=== PATIENT | male | born 1955 | race Caucasian/White ===

== ENCOUNTER → 2016-12-06 | Outpatient (CLI) | payer BC ==
[~2016-12-06] MED LIST: FINA5TAB PO; IBUP-103 PO; SIME1CAP9 PO; ZNTT/150 PO
[2016-12-06 17:30] LABS: BASO % 0.4 %; BASO ABS # 0.03 K/uL (0-0.2); COMPLETE YES; EOS % 1.7 %; HEMATOCRIT 46.7 % (42-52); IG% 0.4 %; LYMPH % 32.6 %; MEAN CELL VOLUME 87.3 fL (80-100); MEAN CORPUSCULAR HEMOGLOBIN 29.9 pg (25-34); MEAN CORPUSCULAR HGB CONC 34.3 g/dl (32-36); MEAN PLATELET VOLUME 9.5 fL (7.4-10.4); MONO % 8.5 %; NEUT % 56.4 %; PLATELET COUNT 283 K/uL (130-400); RED BLOOD COUNT 5.35 M/uL (4.7-6.1); WHITE BLOOD COUNT 8.27 K/uL (4.8-10.8)
[2016-12-06 18:24] LABS: ALT/SGPT 27 U/L (12-78); AST/SGOT 23 U/L (15-37); BLOOD UREA NITROGEN 12 mg/dl (7-18); BUN/CREATININE RATIO 13.5 (10-20); CARBON DIOXIDE 25 mmol/L (21-32); CHLORIDE 104 mmol/L (98-107); GLUCOSE 91 mg/dl (70-99); HDL CHOLESTEROL 39 mg/dl; POTASSIUM 4.3 mmol/L (3.5-5.1); SODIUM 136 mmol/L (136-145)
[2016-12-06 18:36] LABS: ALKALINE PHOSPHATASE 105 U/L (45-117); CHOLESTEROL 173 mg/dl (0-200); CHOLESTEROL/HDL RATIO 4.4; LDL CHOLESTEROL CALCULATED 86 mg/dl; TRIGLYCERIDES 238 mg/dl (0-150); VERY LOW DENSITY LIPOPROT CALC 48 mg/dl
== END | disposition home or self-care (01) ==
LOC: C.LABBFT 11:48
PROVIDERS: ATTEND Internal Medicine
DX: Z11.59 Encounter for screening for other viral diseases (principal); M54.5 Low back pain; Z13.6 Encounter for screening for cardiovascular disorders

== ENCOUNTER → 2016-12-08 | Outpatient (CLI) | payer BC ==
--- NOTE | 2016-12-08 10:42 | DIAGNOSTIC IMAGING REPORT ---
ABDOMEN ULTRASOUND FOR HERNIA CLINICAL HISTORY: R10.30 Groin pain, [id number] COMPARISON STUDY: Abdomen and pelvis CT 02/09/2016. FINDINGS: There is a small fat-containing right inguinal hernia. This appears reducible. No fluid collections or masses. IMPRESSION: Small reducible fat-containing right inguinal hernia. Electronically signed by: Cedric Handley M.D. 12/08/2016 10:41 AM Dictated Date/Time: 12/08/2016 10:40 AM
--- NOTE | 2016-12-08 10:51 | DIAGNOSTIC IMAGING REPORT ---
L-SPINE MIN 4 VIEWS ROUTINE CLINICAL HISTORY: Low back pain COMPARISON STUDY: No previous studies for comparison. FINDINGS: There are 5 lumbar type vertebral bodies. No fractures, subluxations, or destructive lesions are visualized. There are degenerative changes with disc space narrowing at the L5-S1 level. There is mild gaseous prominence of the small bowel. This could reflect a mild ileus. IMPRESSION: Degenerative changes at the L5-S1 level. No fractures identified. Electronically signed by: Thomas Rivera M.D. 12/08/2016 10:50 AM Dictated Date/Time: 12/08/2016 10:49 AM
== END | disposition home or self-care (01) ==
LOC: C.ULTR 10:04
PROVIDERS: ATTEND Internal Medicine
DX: M54.5 Low back pain (principal); R10.30 Lower abdominal pain, unspecified; K40.90 Unilateral inguinal hernia, without obstruction or gangrene, not specified as recurrent

== ENCOUNTER → 2016-12-20 | Outpatient (CLI) | payer BC ==
[~2016-12-20] MED LIST changes: +GADAVIST IV PRN
--- NOTE | 2016-12-20 11:32 | DIAGNOSTIC IMAGING REPORT ---
CT LUNG SCREENING, LOW DOSE WITH COMPUTER-AIDED DETECTION (CAD) CLINICAL HISTORY: LOW DOSE LUNG SCREENING SMOKING HISTORY COMPARISON STUDY: Abdominal CT dated 02/09/2016 and 04/20/2009. CT DOSE: 90.26 mGy.cm TECHNIQUE: Low-dose helical CT was acquired without intravenous contrast from lung apices to bases and reconstructed at 2.5 mm every 2 mm. CAD was utilized for this study. FINDINGS: Thyroid: Imaged portions of the thyroid gland are normal in appearance. Thoracic aorta: There is mild atherosclerotic calcification of the thoracic aorta, which is normal in caliber and demonstrates standard 3-vessel arch anatomy. Heart: The heart is normal in size and there is trace pericardial fluid. The coronary arteries are densely calcified. Lungs and pleural spaces: Advanced emphysematous changes observed. No airspace consolidation is seen typical for pneumonia and there is no pleural effusion. Dependent atelectasis is observed. The trachea and central airways are clear. A tiny calcified granuloma is noted in the left lower lobe. 7 mm pulmonary nodule is seen in the lingula on image #232. This is unchanged from 2009 and of doubtful significance. No additional pulmonary nodules are identified. Mediastinum: A mildly enlarged precarinal node seen on image #144 measures 1.1 cm in short axis. A prominent AP window node measures 9 mm in short axis as seen on image #134. These are nonspecific. Alison: Not well assessed without IV contrast Axilla: Clear. Upper abdomen: There is a tiny hiatal hernia. Partially visualized upper abdominal viscera is otherwise within normal limits. Skeletal structures: The skeletal structures are osteopenic. Degenerative change is noted in the shoulders and thoracic spine. There are no lytic or blastic osseous lesions. IMPRESSION: 1. Advanced emphysema. 2. There is no airspace consolidation or pleural effusion. 3. No concerning pulmonary lesion is identified. 4. There is a 7 mm pulmonary nodule identified in the lingula. This is unchanged dating back to [address] and of doubtful significance. 5. Additional findings as detailed above. CAD FINDINGS: Nodule 1 Category: 2 Nodule 1 Status: Baseline Nodule 1 Description: Solid Nodule 1 Lesion ID: 1 Nodule 1 Slice Number: 43 Nodule 1 Volume (mm3): 83 Nodule 1 Major [place] mm: 8.8 Nodule 1 Minor [place] mm: 3.8 Overall Lung RADS Category: 2 Lung RADS Management Recommendation: Lung-RADS 2: Continue annual screening in 12 months. Lung RADS Follow Up Date: 2017-12-20 Lung RADS Nodule ID: 1 Electronically signed by: Haroon Dorman M.D. 12/20/2016 11:31 AM Dictated Date/Time: 12/20/2016 11:22 AM
--- NOTE | 2016-12-20 13:44 | DIAGNOSTIC IMAGING REPORT ---
MRI LUMBAR SPINE COMBO CLINICAL HISTORY: Lumbago. COMPARISON STUDY: Radiographs of the lumbar spine dated 12/08/2016. Abdominal CT dated 04/20/2009. TECHNIQUE: MRI of the lumbar spine is performed utilizing various T1 and T2-weighted sequences in the axial and sagittal planes. Contrast-enhanced sequences are acquired following the IV administration of 8.5 cc of Gadavist. FINDINGS: Lumbar spine: Vertebral body height and alignment are maintained throughout the lumbar spine. Small hemangiomas are seen in the bodies of L3 and S1. No destructive osseous lesion is identified. The transverse and spinous processes appear intact. There is no evidence of spondylolysis. Tiny anterior osteophytes are seen throughout. Intervertebral discs: There is mild degenerative disc desiccation seen throughout the cervical spine. Mild to moderate loss of height is noted L5-S1. The remaining disc spaces are preserved. Spinal cord: The visualized spinal cord is normal in morphology and signal intensity. The conus medullaris terminates at the T12-L1 interspace. The nerve roots of the cauda equina are normal in morphology. No abnormal enhancement is seen on the postcontrast images. L1-L2: Unremarkable. L2-L3: Unremarkable. L3-L4: Unremarkable. L4-L5: Facet arthropathy is of no consequence. The central canal and neural foramina are widely patent. L5-S1: There is a posterior disc bulge eccentric to the left with annular fissure. The central canal is widely patent. The disc bulge contributes to left-sided subarticular stenosis. This may abut the exiting left L5 and the transiting left S1 nerve roots. The neural foramina are patent. Sacrum: Visualized sacrum is normal in morphology and signal intensity. Soft tissues: The paraspinous soft tissues are within normal limits. The visualized retroperitoneal structures are grossly unremarkable but incompletely assessed. IMPRESSION: 1. No destructive bony process is identified. 2. There is no disc herniation or central canal stenosis. 3. A disc bulge eccentric to the left at L5-S1 contributes to left-sided subarticular stenosis and may abut the exiting left L5 and the transiting left S1 nerve roots. See discussion for detailed level by level analysis. Dictated: 12/20/2016 11:07 AM Transcribed: 12/20/2016 1:44 PM Gilda Electronically signed by: Haroon Dorman M.D. 12/20/2016 2:39 PM Dictated Date/Time: 12/20/2016 11:07 AM
== END | disposition home or self-care (01) ==
LOC: C.MRI 09:48
PROVIDERS: ATTEND Internal Medicine
DX: M54.5 Low back pain (principal); J43.9 Emphysema, unspecified; R91.1 Solitary pulmonary nodule; Z87.891 Personal history of nicotine dependence

== ENCOUNTER → 2017-08-02 | Outpatient (CLI) | payer BC ==
[~2017-08-02] MED LIST changes: -GADAVIST IV PRN; -SIME1CAP9 PO
== END | disposition home or self-care (01) ==
LOC: C.LABBFT 11:50
PROVIDERS: ATTEND Nurse Practitioner
DX: A46 Erysipelas (principal)

== ENCOUNTER → 2017-08-30 | Day surgery (SDC) | payer BC ==
[2017-08-15 13:48] VITALS: Ht 175.3 cm; Wt 90.9 kg
[~2017-08-30] VITALS: Ht 175.3 cm; Wt 90.9 kg
[~2017-08-30] MED LIST changes: +CYCL10TA6 PO; +DICL-201 PO; -IBUP-103 PO; +IBUP1CAP9 PO; +LIDOCAINE HCL 2% 2 ML VIAL (20MG/ML) ONE; +MIDAZOLAM HCL 1 MG/ML 2ML VIAL ONE; +ONDANSETRON INJ 2 MG/ML 2 ML VIAL ONE; +PROPOFOL IV EMULSION 10 MG/ML 20 ML VIAL IV ONE; +TAMS0.4C38 PO
--- NOTE | 2017-08-30 13:04 | Endo History and Physical ---
History & Physical Date of Service: Aug 30, 2017. Chief Complaint: screening,family history of colon cancer Referring Physician: Dr. Matt Neves History of Present Illness 61 yo CM who presents for colonoscopy secondary to family history of colon cancer. Past Medical History Reflux, Hypertension Past Surgical History Hx Cardiac Surgery: No Hx Internal Defibrillator: No Hx Pacemaker: No Hx Abdominal Surgery: Yes (HERNIA REPAIR) Hx of Implantable Prosthesis: No Hx Post-Op Nausea and Vomiting: No Hx Cancer Surgery: No Hx Thoracic Surgery: No Hx Orthopedic: No Hx Urinary Tract Surgery: No Family History Colon CA Social History Smoking Status: Current Every Day Smoker Hx Substance Use: No Hx Alcohol Use: No Allergies Coded Allergies: No Known Allergies (Verified , 08/30/17) Current Medications Reported Home Medications Medications Dose Route/Sig Max Daily Dose Days Date Category Dose Instructions Ibuprofen 200 Mg Cap 2 Cap PO Q6H PRN 08/15/17 Reported Voltaren (Diclofenac Sodium) 75 Mg Tabcr 75 Mg PO QAM 08/15/17 Reported WITH FOOD Flexeril (Cyclobenzaprine Hcl) 10 Mg Tab 10 Mg PO HS 08/15/17 Reported Flomax (Tamsulosin Hcl) 0.4 Mg Cap 0.4 Mg PO QAM 08/15/17 Reported Zantac (Ranitidine HCl) 150 Mg Tab 150 Mg PO BID 01/18/17 Reported Proscar (Finasteride) 5 Mg Tab 5 Mg PO QAM 01/18/17 Reported Vital Signs Weight (Kilograms): 90.91 Height (Feet): 5 Height (Inches): 9 Date Time Temp Pulse Resp B/P (MAP) Pulse Ox O2 Delivery O2 Flow Rate FiO2 08/30/17 12:26 36.7 77 20 159/85 (109) 97 Room Air Physical Exam General Appearance: WD/WN, no apparent distress Respiratory/Chest: Auscultation: breath sounds normal Cardiovascular: Heart Auscultation: RRR Abdomen: Bowel Sounds: normal Inspection & Palpation: soft, non-distended, no tenderness, guarding & rebound Assessment and Plan Assessment: 61 yo CM who presents for colonoscopy secondary to family history of colon cancer. Plan: Proceed with colonoscopy.
--- NOTE | 2017-08-30 13:40 | GI REPORT ---
Procedure Date: 08/30/2017 1:01 PM Procedure: Colonoscopy Indications: Family history of colon cancer in a first-degree relative Medicines: Monitored Anesthesia Care Complications: No immediate complications. Estimated Blood Loss: Estimated blood loss: none. Procedure: Pre-Anesthesia Assessment: - Prior to the procedure, a History and Physical was performed, and patient medications and allergies were reviewed. The patient's tolerance of previous anesthesia was also reviewed. The risks and benefits of the procedure and the sedation options and risks were discussed with the patient. All questions were answered, and informed consent was obtained. Prior Anticoagulants: The patient has taken no previous anticoagulant or antiplatelet agents. ASA Grade Assessment: II - A patient with mild systemic disease. After reviewing the risks and benefits, the patient was deemed in satisfactory condition to undergo the procedure. After I obtained informed consent, the scope was passed under direct vision. Throughout the procedure, the patient's blood pressure, pulse, and oxygen saturations were monitored continuously. The scope was introduced through the anus and advanced to the terminal ileum. The colonoscopy was performed without difficulty. The patient tolerated the procedure well. The quality of the bowel preparation was good. The terminal ileum, ileocecal valve, appendiceal orifice, and rectum were photographed. Findings: The perianal and digital rectal examinations were normal. A moderate amount of semi-solid stool was found in the entire colon, interfering with visualization. Multiple small-mouthed diverticula were found in the sigmoid colon. Non-bleeding internal hemorrhoids were found during retroflexion. The hemorrhoids were small. Impression: - Stool in the entire examined colon. - Diverticulosis in the sigmoid colon. - Non-bleeding internal hemorrhoids. - No specimens collected. Recommendation: - Resume previous diet. - Continue present medications. - Repeat colonoscopy in 3 years for surveillance. - Return to primary care physician as previously scheduled. Ankit Sage DO 08/30/2017 1:39:47 PM This report has been signed electronically. Note Initiated On: 08/30/2017 1:01 PM I attest to the content of the Intraoperative Record and orders documented therein, exceptions below
[2017-08-30 14:06] VITALS: BP 148/89; PULSE 70; O2SAT 96
--- NOTE | 2017-08-30 15:19 | Discharge Instructions ---
Endoscopy Patient Instructions Date / Procedure(s) Performed Aug 30, 2017. Colonoscopy Allergy Information Coded Allergies: No Known Allergies (Verified , 08/30/17) Discharge Date / Findings Aug 30, 2017. Diverticulosis Internal hemorrhoids Medication Instructions Stopped Medication(s): stopped all meds on Monday OK to resume all medications today as prescribed Reported Home Medications Medications Dose Route/Sig Max Daily Dose Days Date Category Dose Instructions Ibuprofen 200 Mg Cap 2 Cap PO Q6H PRN 08/15/17 Reported Voltaren (Diclofenac Sodium) 75 Mg Tabcr 75 Mg PO QAM 08/15/17 Reported WITH FOOD Flexeril (Cyclobenzaprine Hcl) 10 Mg Tab 10 Mg PO HS 08/15/17 Reported Flomax (Tamsulosin Hcl) 0.4 Mg Cap 0.4 Mg PO QAM 08/15/17 Reported Zantac (Ranitidine HCl) 150 Mg Tab 150 Mg PO BID 01/18/17 Reported Proscar (Finasteride) 5 Mg Tab 5 Mg PO QAM 01/18/17 Reported Provider Instructions Activity Restrictions - No exercising or heavy lifting for 24 hours. - Do not drink alcohol the day of the procedure. - Do not drive a car or operate machinery until the day after the procedure. - Do not make any important decisions or sign important papers in 24 hours after the procedure. Following Day: - Return to full activity which may include returning to work/school. Diet Start your diet with liquids and light foods (jello, soup, juice, toast). Then eat your usual diet if not nauseated. Treatment For Common After Affects For mild abdominal pain, bloating, or excessive gas: - Rest - Eat lightly - Lie on right side Follow-Up Information Follow-up with Dr. Matt Neves as scheduled Anesthesia Information What You Should Know You have had a procedure that required some medicine to reduce anxiety and discomfort. This treatment is called moderate sedation. After receiving the treatment, you may be sleepy, but you will be able to breathe on your own. The effects of the treatment may last for several hours. Follow these instructions along with Activity/Diet recommendations noted above: * Do NOT do anything where dizziness or clumsiness would be dangerous. * Rest quietly at home today, then you can be up and about tomorrow. * Have a responsible person stay with you the rest of today. * You may have had an I.V. today. If so, you may take the dressing off later today. Recommendations Call your doctor if: * Trouble breathing * Continuous vomiting for more than 24 hours * Temperature above 101 degrees * Severe abdominal pain or bloating * Pain not relieved by pain medicine ordered * There is increased drainage or redness from any incision * A large amount of rectal bleeding greater than 2-3 tablespoons. (If you had a polyp/s removed or have hemorrhoids, a small amount of blood - from the rectum is to be expected.) * You have any unanswered questions or concerns. IN THE EVENT OF A SERIOUS EMERGENCY, GO TO THE NEAREST EMERGENCY ROOM Your discharge instructions were prepared by provider Ankit Sage. Patient Instructions Signature Page Dev Galindo Patient (or Guardian) Signature/Date: I have read and understand the instructions given to me by my caregivers. Caregiver/RN/Doctor Signature/Date: The above-named patient and/or guardian has received patient instructions on this date. + Original Patient Signature Page (only) stays with chart. Please make copy for patient.
--- NOTE | 2017-08-30 15:23 | Anesthesiology Progress Note ---
Anesthesia Post Op Note Date & Time Aug 30, 2017 at 14:25 Vital Signs Pain Intensity: 0 Vital Signs Past 12 Hours Date Time Temp Pulse Resp B/P (MAP) Pulse Ox O2 Delivery O2 Flow Rate FiO2 08/30/17 14:06 70 20 148/89 (108) 96 Room Air 08/30/17 13:52 70 20 147/88 (107) 96 Room Air 08/30/17 13:36 68 16 126/84 (98) 95 Room Air 08/30/17 12:26 36.7 77 20 159/85 (109) 97 Room Air Notes Mental Status: alert / awake / arousable, participated in evaluation Pt Amnestic to Procedure: Yes Nausea / Vomiting: adequately controlled Pain: adequately controlled Airway Patency, RR, SpO2: stable & adequate BP & HR: stable & adequate Hydration State: stable & adequate Anesthetic Complications: no major complications apparent
== END | disposition home or self-care (01) ==
LOC: C.GI 11:59
PROVIDERS: ATTEND Internal Medicine
DX: Z12.11 Encounter for screening for malignant neoplasm of colon (principal); K57.30 Diverticulosis of large intestine without perforation or abscess without bleeding; K64.8 Other hemorrhoids; Z80.0 Family history of malignant neoplasm of digestive organs; K21.9 Gastro-esophageal reflux disease without esophagitis; I10 Essential (primary) hypertension; F17.200 Nicotine dependence, unspecified, uncomplicated; Z79.899 Other long term (current) drug therapy

== ENCOUNTER → 2017-11-15 | Outpatient (CLI) | payer BC ==
[~2017-11-15] MED LIST changes: -LIDOCAINE HCL 2% 2 ML VIAL (20MG/ML) ONE; -MIDAZOLAM HCL 1 MG/ML 2ML VIAL ONE; -ONDANSETRON INJ 2 MG/ML 2 ML VIAL ONE; -PROPOFOL IV EMULSION 10 MG/ML 20 ML VIAL IV ONE; +RANI150T85 PO; -ZNTT/150 PO
== END | disposition home or self-care (01) ==
LOC: C.LAB 11:03
PROVIDERS: ATTEND Urology
DX: N43.3 Hydrocele, unspecified (principal); R31.0 Gross hematuria

== ENCOUNTER 2018-12-20 23:45 | Observation (INO) ==
[2018-12-21] MEDS ORDERED: ASPIRIN CHEW 324 MG PO STA (00:02)
[2018-12-21 00:14] LABS: Basophils # (auto) 0.04 K/uL (0-0.2); Basophils % (auto) 0.4 %; Hematocrit (blood only) 41.8 % (42-52); Hemoglobin 15.3 g/dL (14.0-18.0); Immature Granulocytes # (auto) 0.03 K/uL (0.00-0.02); Immature Granulocytes % (auto) 0.3 %; Lymphocytes # (auto) 2.13 K/uL (1.2-3.4); Mean Corpuscular Hgb Conc 36.6 g/dL (32-36); Mean Corpuscular Volume 82.3 fL (80-100); Mean Platelet Volume 9.3 fL (7.4-10.4); Monocytes # (auto) 0.66 K/uL (0.11-0.59); Monocytes % (auto) 6.8 %; Neutrophils # (auto) 6.71 K/uL (1.4-6.5); Neutrophils % (auto) 69.5 %; Platelet Count 258 K/uL (130-400); RDW Coefficient of Variation 12.8 % (11.5-14.5); RDW Standard Deviation 38.9 fL (36.4-46.3); Red Blood Count 5.08 M/uL (4.7-6.1); White Blood Count 9.67 K/uL (4.8-10.8)
[2018-12-21 00:31] LABS: Albumin Level 3.6 gm/dl (3.4-5.0); BUN Creatinine Ratio 13.2 (10-20); Calcium 8.4 mg/dl (8.5-10.1); Creatinine Clr Calc Pharmacy 78.5 ml/min; Est GFR (African American) 88.6; Est GFR (Non-African American) 76.4; Potassium 3.8 mmol/L (3.5-5.1)
[2018-12-21 00:36] LABS: Albumin Globulin Ratio 0.9 (0.9-2); Bilirubin,Total 0.3 mg/dl (0.2-1); Creatine Kinase MB 8.6 ng/ml (0.5-3.6); Globulin 3.9 gm/dl (2.5-4.0); Total Protein 7.5 gm/dl (6.4-8.2); Troponin I 0.016 ng/ml (0-0.045)
--- NOTE | 2018-12-21 01:18 | Emergency Department Note ---
History of Present Illness General Chief complaint: Chest Pain Stated complaint: CHEST PAIN,SWEATS Source: patient Mode of arrival: ambulatory Limitations: no limitations History of Present Illness This patient is a 63-year-old male who presents to the emergency department complaining of an episode of chest pain which began approximately 3 hours ago. The patient states that he was at work and was walking when he developed a gradually worsening pain in the center of his chest. He describes this as a severe pressure which did not radiate anywhere. He states that he also developed diaphoresis at that time. He sat down and the pain gradually improved and resolved after 45 minutes. The patient does admit that he has been having some similar episodes of pain for the past 2 months. He states these have been occurring 2-3 times weekly and are typically associated with exertion. He does have a history of reflux and attributed the symptoms to this. He states he has had a stress test in the past, but it has been several years. He denies any personal history of cardiac disease, but does state that 2 of his siblings have had MIs and one sibling has a pacemaker. He is a smoker. He denies any history of hypertension or hyperlipidemia. He denies nausea/vomiting, shortness of breath, or abdominal pain. Home Medications Home Medications Medication Instructions Recorded Confirmed Type finasteride 5 mg PO QAM 12/21/18 12/21/18 History ibuprofen 400 mg PO Q6H PRN 12/21/18 12/21/18 History ranitidine HCl 150 mg PO BID 12/21/18 12/21/18 History tamsulosin 0.4 mg PO QAM 12/21/18 12/21/18 History Allergies Allergy/AdvReac Type Severity Reaction Status Date / Time No Known Allergies Allergy Verified 12/21/18 01:27 Past Med/Surg History Medical History Enlarged prostate (Chronic) GERD (gastroesophageal reflux disease) Surgical History H/O inguinal hernia repair Social History Preferred Language: Kazakh Communication Ability: Effective 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 Beliefs That Will Affect Care: None Current Living Situation: Spouse Current Living Situation Comment: home Other Information That Helps Us Care for You: No Feels Safe at Home: Yes Safety Concerns: Feels Safe At This Time Smoking Status: Current every day smoker Tobacco Type: cigars Cigarettes Per Day: 40-60 Do You Dip or Chew Tobacco: No Second Hand Exposure: No Tobacco Cessation Education Requested by Patient: No Hx Alcohol Use: No Hx Substance Use: No Review of Systems A total of 10 systems reviewed and were otherwise negative Physical Exam Vital Signs Vital Signs - 24 hr 12/20/18 23:49 12/21/18 00:09 12/21/18 01:04 Temperature 36.7 C Temperature Source Oral Sepsis Action Taken by Nursing No Action Required Pulse Rate 78 67 Pulse Rate [Finger] 61 Respiratory Rate 20 18 Respiratory Effort / Characteristics Non-Labored Respiratory Depth Normal Blood Pressure 165/87 H Blood Pressure [Right Arm] 142/86 H Blood Pressure Mean 113 Blood Pressure Mean [Right Arm] 104 Pulse Oximetry 96 97 93 Oxygen Delivery Method Room Air Room Air Room Air VITALS: Vitals are noted on the nurse's note and reviewed by myself. Vital signs stable. GENERAL: This is a 63-year-old male, in no acute distress, nondiaphoretic, well- developed well-nourished. SKIN: The skin was without rashes. EARS: External auditory canals clear, tympanic membranes pearly [place] without erythema or effusion bilaterally. EYES: Pupils equal round and reactive to light and accommodation. MOUTH: Mucous membranes moist. Tonsils are not enlarged. Pharynx without erythema or exudate. NECK: Supple without nuchal rigidity. No lymphadenopathy. HEART: Regular rate and rhythm without murmurs gallops or rubs. LUNGS: Clear to auscultation bilaterally without wheezes, rales or rhonchi. No retractions or accessory muscle use. ABDOMEN: Positive bowel sounds x 4. Soft, nontender to palpation. EXTREMITIES: No peripheral edema. NEURO: Patient was alert and oriented to person place and time. Course Consultations Consultation #1: Dr. Burgess - [facility] hospitalist Administered Medications Discontinued Medications Aspirin (Aspirin) 324 mg PO NOW STA Stop: 12/21/18 00:03 Last Admin: 12/21/18 00:09 Dose: 324 mg Documented by: [id number] Medical Decision Making Differential Diagnosis Differential diagnosis includes acute coronary syndrome, pulmonary embolism, pneumothorax, pericarditis, myocarditis, endocarditis, anxiety, musculoskeletal pain, GERD, costochondritis, pneumonia, among others. Medical Records Attestation: I reviewed the patient's medical records. Home Medications Current Medication List: was personally reviewed by me Laboratory Data Attestation: I reviewed the patient's lab results. Result diagrams: 12/20/18 23:55 12/20/18 23:55 Lab Results 12/20/18 12/20/18 Range/Units 23:55 23:55 WBC 9.67 (4.8-10.8) K/uL RBC 5.08 (4.7-6.1) M/uL Hgb 15.3 (14.0-18.0) g/dL Hct 41.8 L (42-52) % MCV 82.3 (80-100) fL MCH 30.1 (25-34) pg MCHC 36.6 H (32-36) g/dL RDW Std Deviation 38.9 (36.4-46.3) fL RDW Coeff of [place] 12.8 (11.5-14.5) % Plt Count 258 (130-400) K/uL MPV 9.3 (7.4-10.4) fL Immature Gran % (Auto) 0.3 % Neut % (Auto) 69.5 % Lymph % (Auto) 22.0 % [place] % (Auto) 6.8 % Eos % (Auto) 1.0 % Baso % (Auto) 0.4 % Immature Gran # (Auto) 0.03 H (0.00-0.02) K/uL Neut # (Auto) 6.71 H (1.4-6.5) K/uL Lymph # (Auto) 2.13 (1.2-3.4) K/uL [place] # (Auto) 0.66 H (0.11-0.59) K/uL Eos # (Auto) 0.10 (0-0.5) K/uL Baso # (Auto) 0.04 (0-0.2) K/uL Sodium 137 (136-145) mmol/L Potassium 3.8 (3.5-5.1) mmol/L Chloride 105 (98-107) mmol/L Carbon Dioxide 27 (21-32) mmol/L Anion Gap 5.0 (3-11) BUN 14 (7-18) mg/dl Creatinine 1.03 (0.6-1.4) mg/dl Est Cr Clr Drug Dosing 78.5 ml/min Est GFR ( Amer) 88.6 Est GFR (Non-Af Amer) 76.4 BUN/Creatinine Ratio 13.2 (10-20) Glucose 114 H (70-99) mg/dl Calcium 8.4 L (8.5-10.1) mg/dl Total Bilirubin 0.3 (0.2-1) mg/dl AST 21 (15-37) U/L ALT 24 (12-78) U/L Alkaline Phosphatase 99 (45-117) U/L Total Creatine Kinase 314 H (39-308) U/L CK-MB (CK-2) 8.6 H (0.5-3.6) ng/ml CK/CKMB % Calc 2.7 (0-3.0) Troponin I 0.016 (0-0.045) ng/ml Total Protein 7.5 (6.4-8.2) gm/dl Albumin 3.6 (3.4-5.0) gm/dl Globulin 3.9 (2.5-4.0) gm/dl Albumin/Globulin Ratio 0.9 (0.9-2) Imaging Data Attestation: I personally reviewed and interpreted this imaging study as follows: My Impression: CHEST 1 VIEW: No pulmonary infiltrates. No cardiomegaly. No pleural effusions or pneumothorax. Normal mediastinum. ECG Data Attestation: I personally reviewed and interpreted this ECG as follows: Indication: chest pain Rate (beats per minute): 67 Rhythm: normal sinus Findings: + RBBB; no acute ischemic change and no ectopy Comparison ECG Date: from (12/19/17) Change: the following changes noted (RBBB now present) Blood Pressure Blood Pressure Findings: Elevated blood pressure Blood Pressure Disposition: further management by hospitalist TAMICA Narrative The patient is a 63-year-old male who presents today complaining of chest pain which has resolved on arrival. Labs revealed no leukocytosis, anemia or concer kizzy electrolyte abnormalities. Initial troponin was not elevated. Creatinine kinase and CK-MB were both found to be slightly elevated. EKG does not show any acute ischemic changes, but does show a new right bundle branch block. Patient seems to be having anginal symptoms over the past few months. His HEART score is 4. Given these findings, I do feel the patient would benefit from admission/ observation for further cardiac work-up. Patient was agreeable to this. The [facility] Hospitalist service was consulted and will evaluate the patient. Impression & Plan Substernal chest pain Discharge Plan Visit Data *Final* Discharge Date/Time: 12/21/18 02:05 Chief Complaint: Chest Pain Stated Complaint: CHEST PAIN,SWEATS ED Provider: Jaye Ayala ED Midlevel Provider: Raquel Black Discharge Problem: Substernal chest pain Patient Disposition: Admitted As Inpatient Discharge Instructions Interventions: ED Discharge Assessment Last Done: 12/21/18 02:05
--- NOTE | 2018-12-21 02:09 | History & Physical Report ---
Date of Service December 21, 2018 Assessment & Plan (1) Chest pain: 63-year-old male with a 53-[id number]-cruu smoking history, BPH and family history of CAD presents with exertional chest pain. 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 States that he suddenly became diaphoretic. He describes the pain as dull, pressure-like, substernal, 10 out of 10 with radiation to his back. He sat down and the pain progressively got better over a period of 45 minutes. Patient admits to having poor outpatient follow-up. He denies diagnosis of diabetes, hypertension or hyperlipidemia. Both his brother and sister had MIs. Patient has been having chest pain over the past couple months. He is unsure of the context of the pain. His thinks that it occurs following a large meal. Patient takes Zantac for GERD. Chest pain, ACS rule out Admit to telemetry, trend troponins, morning EKG Patient appears to be having typical anginal symptoms Aspirin 81 mg qam, nitro for chest pain Poor outpatient follow-upwill obtain hemoglobin A1c, lipids Tobacco dependence Continue smoking cessation discussions BPH Continue finasteride, tamsulosin GERD Continue ranitidine DVT prophylaxis Lovenox CODE STATUS Full (2) BPH (benign prostatic hyperplasia): (3) GERD (gastroesophageal reflux disease): (4) Tobacco dependence: History of Present Illness Primary Care Provider: Matt Neves MD 63-year-old male with a 40-ypnu-corm smoking history, BPH and family history of CAD presents with exertional chest pain. 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 States that he suddenly became diaphoretic while working. He describes the pain as dull, pressure-like, substernal, 10 out of 10 with radiation to his back. He sat down and the pain progressively got better over a period of 45 minutes. Patient admits to having poor outpatient follow-up. He denies diagnosis of diabetes, hypertension or hyperlipidemia. Both his brother and sister had MIs. Patient has been having chest pain over the past couple months. He is unsure of the context of the pain. His thinks that it occurs following a large meal. Patient takes Zantac for GERD. Review of systems Constitutional; no fevers, chills, night sweats HEENT; denies sore throat, denies runny nose Cardio; chest pain described above Pulmonary; denies shortness of breath, denies cough, denies wheezing Abdomen; denies abdominal pain, denies nausea/vomiting/diarrhea ; urinary frequency, denies dysuria Allergies Allergy/AdvReac Type Severity Reaction Status Date / Time No Known Allergies Allergy Verified 12/21/18 01:27 Home Medications Home Medications Medication Instructions Recorded Confirmed Type finasteride 5 mg PO QAM 12/21/18 12/21/18 History ibuprofen 400 mg PO Q6H PRN 12/21/18 12/21/18 History ranitidine HCl 150 mg PO BID 12/21/18 12/21/18 History tamsulosin 0.4 mg PO QAM 12/21/18 12/21/18 History Past Med/Surg History Medical History Enlarged prostate (Chronic) GERD (gastroesophageal reflux disease) Social History Feels Safe at Home: Yes Smoking Status: Current every day smoker Review of Systems Review of Systems: All systems reviewed & are unremarkable except as noted in HPI & below Physical Exam Constitutional: WD/WN, vitals as above Eyes: PERRL, conjunctivae normal, anicteric sclerae ENMT: external ear and nose normal, oropharynx normal Neck: trachea midline, no thyromegaly Respiratory: normal respiratory effort, lungs clear to auscultation Cardiovascular: RRR, no murmur, no edema Gastrointestinal (Abdomen): normal bowel sounds, soft, nontender, no hepatosplenomegaly Negative Syed sign Musculoskeletal: no cyanosis or clubbing, extremities motor strength 5/5 Skin: no rashes, warm and dry Neurologic: PERRL, EOMI, accommodation nl, no face palsy, no dysarthria Psychiatric: A+Ox3, euthymic affect Results & Data Vital Signs (Past 12 Hours) Vital Signs Temp Pulse Pulse Resp BP BP Pulse Ox 12/21/18 01:04 61 18 142/86 H 93 12/21/18 00:09 67 97 12/20/18 23:49 36.7 C 78 20 165/87 H 96 Supervising Physician Co-Signing Physician Notes Pt seen/examined in conjunction with resident MD Kwesi Benavidez. Orders and plan of admission review with resident. 63 y/o M Hx GERD, BPH, COPD, heavy smoker - presenting with central CP radiating to back and accompanied by SOB and diaphoresis. Pain lasted > 30min. Initial labs are notable for an elevated CK and CKMB - trop is detectable although not elevated. EKG demonstrates a RBBB - no acute ischemic changes. Pt has multiple family members with CAD. OE AAO x 3 - no distress S1,2 R CTAB - air movement is diminished NT, ND No CCE P: Fully anticoagulated, ASA, statin - HR would not tolerate B maria elena - may need a cath rather than a stress - can be contingent on repeat enzymes He is not interested in smoking cessation Will continue his Finasteride and Flomax Resident Activity Tracking Resident Involvement: Resident Care Provided Care Provided: Adult Hospital Medicine
--- OUTSIDE RECORDS SUMMARY | 2018-12-21 02:13 | External Medical Summary | Continuity of Care Document ---
:1955 Author Name Scott Painting, Provider Address Unavailable Unavailable , Care Team Providers Name Role Phone Babs Salcido Unavailable [email or web address], Matt Unavailable [email or web address], Ada Unavailable [email or web address] Ivan HATCH, Fouzia Unavailable [email or web address], Matt Vidal [email or web address], Yuri Unavailable Unavailable Unavailable Unavailable Unavailable Problems Acute sinusitis (461.9) (J01.90) Elevated PSA (790.93) (R97.20) Hydrocele (603.9) (N43.3) Abnormal electrocardiogram (794.31) (R94.31) Benign prostatic hyperplasia (600.00) (N40.0) Groin pain, right (789.09) (R10.31) Benign prostatic hyperplasia with urinary obstruction (600.0 1) (N40.1) Skin lesion (709.9) (L98.9) Erysipelas (035) (A46) Internal hemorrhoids (455.0) (K64.8) Spermatocele (608.1) (N43.40) Lumbar disc herniation (722.10) (M51.26) Right inguinal hernia (550.90) (K40.90) Gastroesophageal reflux disease (530.81) (K21.9) Pulmonary nodule (793.11) (R91.1) Elevated blood pressure reading (796.2) (R03.0) Diverticulosis (562.10) (K57.90) Personal history of tobacco use (V15.82) (Z87.891) Low back pain (724.2) (M54.5) Knee pain (719.46) (M25.569) Gross hematuria (599.71) (R31.0) Allergies and Adverse Reactions No Known Drug Allergies (Allergy) Medications Suprep Bowel Prep Kit 17.5-3.13-1.6 GM/177ML Oral Solu tion; USE DIRECTED. HOLDEN Bruce Start: 22-Aug-2017 Quantity: 1 2 x 177 ML Bottle Refills: 0 raNITIdine HCl - 150 MG Oral Tablet; TAKE (1) TABLET T WICE A DAY. ROBIN Collins Start: 27-Aug-2018 Quantity: 60 Refills: 5 Diclofenac Sodium 75 MG Oral Tablet Teri yed Release; TAKE 1 TABLET EVERY 12 HOURS NEEDED FOR PAIN. Garima Neves Start: 21-Dec-2017 Quantity: 60 Refills: 0 Cyclobenzaprine HCl - 10 MG Oral Tablet; TAKE 1 TABLET BEDTI ME NEEDED Start: 03-May-2017 Quantity: 30 Refills: 1 Tamsulosin HCl - 0.4 MG Oral Capsule; TA KE ONE CAPSULE BY MOUTH ONCE DAILY ONE- HALF HOUR AFTER SUPPER Garima Borja Start: 03-May-2017 Quantity: 90 Refills: 3 Finasteride 5 MG Oral Tablet; TAKE ONE TABLET BY MOUTH ONCE DAILY , DIRECTED Garima Borja Start: 30-Sep-2016 Quantity: 90 Refills: 3 Tylenol TABS Refills: 0 Procedures Lung Cancer Screening LDCT Date: 28-Nov-2018 History of Hernia Repair Status: Complet ed History of Shoulder Surgery Status: Comp leted Immunizations Fluzone Quadrivalent 0.5 ML Intramuscular Suspension On: 12:20 Lot #: [id number], [employer] Family History Sister Family history of myocardial infarction (V17.3) (Z82.49) Sta tus: Active Family history of Diabetes Mellitus (V18.0) Status: Active Brother Family history of myocardial infarction (V17.3) (Z82.49) Sta tus: Active Family history of Diabetes Mellitus (V18.0) Status: Active Father Family history of Diabetes Mellitus (V18.0) Status: Active Family history of Cancer Status: Active Family history of Colon cancer (153.9) (C18.9) Status: Activ e Unknown Family Member Family history of Diabetes Mellitus (V18.0) Status: Active Comments: Family History Family history of Cancer Status: Active Comments: Fami ly History Social History - Smoking Status Smoker. current status unknown Plan of Treatment Planned Encounters Appointment; Fouzia Love PA-C Start: 21-Dec-2018 1 1:00 Request Planned Observations Planned Goals not documented Results No Known Results Results not documented Vital Signs 10-Dec-2018 11:59 Systolic 142 mm[Hg] Comments: Location: LLE; Position: Sitting Diastolic 84 mm[Hg] Comments: Location: LLE; Position: Sitting Weight 189.25 lb BSA Calculated 2.04 m2 BMI Calculated 27.15 kg/m2 O2 Saturation 98 % Comments: Source: Heart Rate 67 /min Encounters Appointment; Alyson Rachel PA-C 10-Dec-2018 12:00 Encounter Diagnosis: Problem not documented Appointment; Matt Borja M.D. 10-Jan-2018 9:10 Encounter Diagnosis: Problem not documented Appointment; Matt Borja M.D. 03-Jan-2018 9:10 Encounter Diagnosis: Problem not documented Appointment; Matt Borja M.D. 02-Jan-2018 8:00 Encounter Diagnosis: Problem not documented Appointment; Matt Borja M.D. 13-Dec-2017 9:30 Encounter Diagnosis: Problem not documented Appointment; Matt Neves M.D. 19-Sep-2017 13:30 Encounter Diagnosis: Problem not documented Appointment; Elisabet Cartagena PA-C 04-Aug-2017 14:30 Encounter Diagnosis: Problem not documented Appointment; Babs Collins CRNP 02-Aug-2017 9:30 Encounter Diagnosis: Problem not documented Appointment; Matt Neves M.D. 03-May-2017 11:10 Encounter Diagnosis: Problem not documented Appointment; Elisabet Cartagena PA-C 27-Dec-2016 11:00 Encounter Diagnosis: Problem not documented Appointment; Fouzia Love PA-C 21-Dec-2018 11:00 Encounter Diagnosis: Problem not documented
[2018-12-21] MEDS ORDERED: NITROGLYCERIN SL 0.4 MG/TAB TAB SL PRN (02:22)
[2018-12-21] MEDS ORDERED: ACETAMINOPHEN 325 MG TAB PO PRN (02:22)
--- NOTE | 2018-12-21 06:46 | XRay Report ---
XR chest 1V portable CLINICAL HISTORY: 63 years-old Male presenting with Chest Pain. TECHNIQUE: Portable upright AP view of the chest was obtained. COMPARISON: CT from 12/21/2017 and chest x-ray from 10/08/2013. FINDINGS: Atherosclerosis of the aortic arch. Cardiac silhouette normal in size. Lungs are hyperinflated. No fo kelly opacity. No pleural effusion or pneumothorax. Degenerative changes of the thoracic spine. IMPRESSION: 1. Findings suggest emphysema. No focal infiltrate to suggest pneumonia. Electronically signed by: Carlos Baker M.D. 12/21/2018 6:45 AM
[2018-12-21 07:01] LABS: Basophils # (auto) 0.04 K/uL (0-0.2); Basophils % (auto) 0.5 %; Eosinophils # (auto) 0.15 K/uL (0-0.5); Hematocrit (blood only) 43.5 % (42-52); Hemoglobin 15.2 g/dL (14.0-18.0); Immature Granulocytes # (auto) 0.02 K/uL (0.00-0.02); Immature Granulocytes % (auto) 0.3 %; Lymphocytes # (auto) 2.45 K/uL (1.2-3.4); Lymphocytes % (auto) 33.2 %; Mean Corpuscular Hgb Conc 34.9 g/dL (32-36); Mean Platelet Volume 9.2 fL (7.4-10.4); Monocytes # (auto) 0.69 K/uL (0.11-0.59); Monocytes % (auto) 9.3 %; Neutrophils # (auto) 4.04 K/uL (1.4-6.5); Neutrophils % (auto) 54.7 %; Platelet Count 228 K/uL (130-400); RDW Coefficient of Variation 12.9 % (11.5-14.5); RDW Standard Deviation 38.9 fL (36.4-46.3); Red Blood Count 5.18 M/uL (4.7-6.1); White Blood Count 7.39 K/uL (4.8-10.8)
[2018-12-21 07:38] LABS: BUN Creatinine Ratio 12.4 (10-20); Calcium 9.2 mg/dl (8.5-10.1); Creatinine Clr Calc Pharmacy 76.2 ml/min; Est GFR (African American) 94.1; Est GFR (Non-African American) 81.2; Potassium 4.1 mmol/L (3.5-5.1)
[2018-12-21 07:42] LABS: Estimated Average Glucose 114 mg/dl; Hemoglobin A1C 5.6 % (4.5-5.6)
[2018-12-21 07:49] LABS: INR 1.1 (0.9-1.1); Prothrombin Time 10.9 Seconds (9.0-12.0)
[2018-12-21] MEDS ORDERED: ATORVASTATIN 20 MG TAB PO SCH (09:00)
[2018-12-21] MEDS ORDERED: FINASTERIDE 5 MG TAB PO SCH (09:00)
[2018-12-21] MEDS ORDERED: TAMSULOSIN HCL 0.4 MG CAP PO SCH (09:00)
[2018-12-21] MEDS ORDERED: ASPIRIN 81 MG ECTAB PO SCH (09:00)
[2018-12-21] MEDS ORDERED: ENOXAPARIN 150 MG/ML SYR SC SCH (09:00)
[2018-12-21] MEDS ORDERED: NICOTINE 21 MG/24 HR TDSY TD SCH (15:00)
--- NOTE | 2018-12-21 16:28 | Discharge Summary ---
Date of Service December 21, 2018 Admission HPI Per Admitting Provider 63-year-old male with a 14-azws-zzjd smoking history, BPH and family history of CAD presents with exertional chest pain. 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 States that he suddenly became diaphoretic while working. He describes the pain as dull, pressure-like, substernal, 10 out of 10 with radiation to his back. He sat down and the pain progressively got better over a period of 45 minutes. Patient admits to having poor outpatient follow-up. He denies diagnosis of diabetes, hypertension or hyperlipidemia. Both his brother and sister had MIs. Patient has been having chest pain over the past couple months. He is unsure of the context of the pain. His thinks that it occurs following a large meal. Patient takes Zantac for GERD. Review of systems Constitutional; no fevers, chills, night sweats HEENT; denies sore throat, denies runny nose Cardio; chest pain described above Pulmonary; denies shortness of breath, denies cough, denies wheezing Abdomen; denies abdominal pain, denies nausea/vomiting/diarrhea ; urinary frequency, denies dysuria Principal Diagnosis Atypical Chest Pain Discharge Exam Constitutional WD/WN, vitals as above Eyes PERRL, conjunctivae normal, anicteric sclerae ENMT external ear and nose normal, oropharynx normal Neck trachea midline, no thyromegaly Respiratory normal respiratory effort, lungs clear to auscultation Cardiovascular RRR, no murmur, no edema Gastrointestinal (Abdomen) normal bowel sounds, soft, nontender, no hepatosplenomegaly Musculoskeletal no cyanosis or clubbing, extremities motor strength 5/5 Skin no rashes, warm and dry Neurologic PERRL, EOMI, accommodation nl, no face palsy, no dysarthria Psychiatric A+Ox3, euthymic affect Discharge Data Allergies Allergy/AdvReac Type Severity Reaction Status Date / Time No Known Allergies Allergy Verified 12/21/18 01:27 Consultations 12/21/18 01:01 ED Decision to Admit Stat 12/21/18 02:22 Consult Case Management - Discharge Planning Routine Hospital Course (1) Chest pain: 63-year-old male with a 91-luhu-lczp smoking history, BPH and family history of CAD presents with exertional chest pain. 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 States that he suddenly became diaphoretic. He describes the pain as dull, pressure-like, substernal, 10 out of 10 with radiation to his back. He sat down and the pain progressively got better over a period of 45 minutes. Patient admits to having poor outpatient follow-up. He denies diagnosis of diabetes, hypertension or hyperlipidemia. Both his brother and sister had MIs. Patient has been having chest pain over the past couple months. He is unsure of the context of the pain. His thinks that it occurs following a large meal. Patient takes Zantac for GERD. Chest pain, ACS rule out Troponins negative x 3 (.016, .038, .022) with elevated CKMB of 8.6 (with elevated CK as well). -EKG revealed LAD, RBBB, PACs Appears to be c/w stable angina -Patient had stress echo performed which did not reveal pathology, NSTEMI, etc. EF 50-55. Terminated after 6 min 2/2 fatigue. Aspirin 81 mg qam, nitro for chest pain started. -Started on 40mg atorvastatin. -Lipids: Tchol 150, LDL 83, Tri 156, HDL 33 -A1c of 5.6% Poor outpatient follow-up -Patient had several elevated BP readings, several normal. Would follow clinically to formally dx with HTN. -Patient wished to be discharged after stress test without further evaluation. Tobacco dependence Continue smoking cessation discussions. Patient pre-contemplative on original discussion but by discharge was interested in discussing, contemplative. -2ppd. 60 pack yr history. BPH Continue finasteride, tamsulosin GERD Continue ranitidine. Considering normal stress, may investigate further if severe GERD is contributing to symptoms. -Patient would like referral to gastroenterology to discuss as outpatient CODE STATUS Full (2) BPH (benign prostatic hyperplasia): (3) GERD (gastroesophageal reflux disease): (4) Tobacco dependence: Total Time Total Time Spent Total Time Spent (In Minutes): 30 Discharge Plan Discharge Items Patient Disposition: Home - Self-Care Reason For Visit: CHEST PAIN Discharge Diagnosis: Atypical Chest pain Discharge Goals: Diagnostic testing, Improve nutritional status and Therapeutic intervention Activity: Per 'Additional Instructions' section Non-emergency contact: Primary Care Provider Call non-emergency contact if: you have any medication questions, your symptoms worsen and your pain is concerning for you Follow-up/Referrals: Chau Neves MD [Primary Care Provider] - Diet: Heart Healthy [facility] Provider Instructions: During this admission, you were evaluated for atypical chest pain. Some of your symptoms were consistent with angina, which can be related to heart disease. Fortunately, your stress test was normal. A normal stress test does not mean that you are at any decreased risk of having a heart attack, but that you are not currently having issues. Based on your family history, blood pressure, and smoking status, your risk of having a heart attack or stroke in the next 10 years is between 15-20%. To cut down on this risk, we recommend you absolutely cut out smoking. You will be given some new medications. Please see your primary care provider in the next 7-14 days to discuss these medication changes. New meds: --Nitro dissolving tabs: have these handy and take one when you experience chest discomfort --Daily aspirin. We would recommend you cut down on your intake of advil/ibuprofen while taking this medication as it can irritate your stomach and can cause GI bleeding. --Atorvastatin. This is to help protect your heart from plaque damage. Again, please follow up with your primary care doctor CHARY to discuss these symptoms, your visit here, and your new medications. If your symptoms return or worsen in the meantime, please do not hesitate to return to the ER. Prescriptions: New atorvastatin 20 mg Tablet 40 mg PO QAM 30 Days Qty: 60 RF: 0 aspirin [Ecotrin Low Strength] 81 mg Tablet,Delayed Release (Dr/Ec) 81 mg PO QAM 30 Days Qty: 30 RF: 0 nitroglycerin [Nitrostat] 0.4 mg Tablet, Sublingual 0.4 mg sublingual UD PRN (Reason: chest pain) 30 Days Qty: 30 RF: 0 Continued tamsulosin 0.4 mg capsule 0.4 mg PO QAM RF: 0 ranitidine HCl 150 mg tablet 150 mg PO BID RF: 0 finasteride 5 mg tablet 5 mg PO QAM RF: 0 Discontinued ibuprofen 200 mg Tablet 400 mg PO Q6H PRN (Reason: Pain) RF: 0 Stand-Alone Forms: Call Back Authorization, [facility]/Other Patient Handouts: Tips Cardiovascular Quit Smoking, Quit Smoking Plan, Quit Smoking Get Support, Smoke Free Benefits, Smoking Kick Habit, ED Chest Pain Atypical Unkn Cause, ED Smoking Cessation Discharge Orders: Discharge Order (Routine); Ordered 12/21/18 Ordered By: Micaela Lau Admission Data Admit Date/Time: 12/21/18 01:47 Attending Provider: Delroy Dozier Admit Provider: Brian Benavidez Primary Care Provider: Chau Neves Other Providers: Mike Burgess Service: Telemetry Medical Other Interventions: Discharge Summary Assessment (RN) Last Done: 12/21/18 17:18 DC Date/Time DO NOT enter until pt leaves facility: 12/21/18 17:56 Supervising Physician Co-Signing Physician Notes Patient seen and examined with Dr. Lau. Agree with history, exam findings, assessment and plan of care as outlined. In brief, Mr. Galindo is a 63 year old male with 60 pack year smoking hx, BPH, family hx of CAD admitted with exertional chest pain. Denies chest pain recurrence since admission. 1. Chest pain. Typical angina. ASA. Nitro prn. A1C does not indicate DM or pre- DM. CCM. EKG and trending trops (0.016-->0.038). EKG on admission with NSR with LAD, RBBB (new). Repeat EKG relatively unchanged. Stress echo performed today which was read as normal. Started high intensity statin. 2. Tobacco use. precontemplative at this time. Can follow up with PCP for further smoking cessation interventions including nicotine replacement vs medication. Dispo: discharge home today. I personally spent 25 minutes discharge planning for the patient today. Resident Activity Tracking Resident Involvement: Resident Care Provided Care Provided: Adult Hospital Medicine
== END 2018-12-21 17:56 | disposition home or self-care (01) ==
LOC: 2W 23:45 → ED 23:45 → SUATTDRO 12-21 01:47 → 2W 12-21 02:05